=== PATIENT | female | born 1955 | race Caucasian/White ===

== ENCOUNTER 2016-10-14 08:22 | Emergency (ER) | payer BC ==
[2016-10-14 09:14] VITALS: BP 133/86
--- NOTE | 2016-10-14 10:22 | UC ---
Skin Complaint HPI - HPI Summary HPI Summary: THIS MORNING IN THE SHOWER NOTICED A TICK EMBEDDED IN SKIN RIGHT LOW BACK LATERALLY. THINKS IT PROBABLY HAS BEEN ATTACHED SINCE WEDNESDAY (3 DAYS AGO) WHEN SHE WAS OUT IN THE [place]. FEELS WELL OVERALL. - History of Current Complaint Chief Complaint: UCSkin Time Seen by Provider: 10/14/16 10:11 Stated Complaint: TICK BITE Hx Obtained From: Patient Skin Exposure Onset/Duration: Days Ago Timing: Constant Onset Severity: Mild Current Severity: Mild Pain Intensity: 0 Pain Scale Used: 0-10 Numeric Location: Discrete - RIGHT LOW BACK Character: Redness Aggravating: Nothing Alleviating: Nothing Associated Signs & Symptoms: Positive: Negative Related History: Insect Bite/Sting - Allergy/Home Medications Allergies/Adverse Reactions: Allergies Allergy/AdvReac Type Severity Reaction Status Date / Time Penicillins [PCN] Allergy Unknown Verified 03/08/14 15:37 Reaction Details Sulfa Antibiotics Allergy Unknown Verified 03/08/14 15:36 Reaction Details Review of Systems Constitutional: Negative Skin: Rash, Other - TICK EMBEDDED Respiratory: Negative Cardiovascular: Negative Gastrointestinal: Negative All Other Systems Reviewed And Are Negative: Yes PMH/Surg Hx/FS Hx/Imm Hx Endocrine History Of: Reports: Thyroid Disease - HYPO, Hypothyroidism, Dyslipidemia Cancer History Of: Denies: Breast Cancer - Surgical History Surgical History: None - Family History Known Family History: Positive: Hypertension - Social History Alcohol Use: Occasionally Substance Use Type: None Smoking Status (MU): Never Smoked Tobacco Physical Exam Triage Information Reviewed: Yes Appearance: Well-Appearing, No Pain Distress, Well-Nourished Vital Signs: Initial Vital Signs Temp 99.4 F 10/14/16 09:08 Pulse 72 10/14/16 09:08 Resp 16 10/14/16 09:08 BP 133/86 10/14/16 09:08 Pulse Ox 98 10/14/16 09:08 Vital Signs Reviewed: Yes Eyes: Positive: Conjunctiva Clear ENT: Positive: Hearing grossly normal Neck: Positive: Supple Respiratory: Positive: No respiratory distress, No accessory muscle use Cardiovascular: Positive: Pulses Normal Abdomen Description: Positive: Soft Musculoskeletal: Positive: No Edema Neurological: Positive: Alert Psychological: Positive: Age Appropriate Behavior Skin: Positive: Other - MAJORITY OF A TICK EMBEDDED IN SKIN OF RIGHT LOWER BACK. 1CM AREA OF ERYTHEMA SURROUNDING Course/Dx - Course Course Of Treatment: TICK REMOVED IN ENTIRETY USING SPLINTER FORCEPS. PT MEETS CRITERIA FOR LYME PROPHYLAXIS WITH DOXY. - Diagnoses Provider Diagnoses: TICK BITE/TICK REMOVAL Discharge - Discharge Plan Condition: Stable Disposition: HOME Prescriptions: Doxycycline (Monohydrate) [Doxycycline Monohydrate] 200 mg PO ONCE #2 cap Patient Education Materials: Tick Bite (ED) Referrals: Dallas Boyer MD [Primary Care Provider] - If Needed Additional Instructions: GIVEN THE LENGTH OF TIME THE TICK WAS ATTACHED WE HAVE PRESCRIBED THE PROPHYLACTIC DOSE OF DOXYCYCLINE. YOUR CHANCES OF DEVELOPING LYME DISEASE ARE SMALL. BE VIGILANT OF YOUR SYMPTOMS AND DON'T HESITATE TO GET SEEN AGAIN IF YOU DEVELOP UNEXPLAINED FEVER, HEADACHE, JOINT PAIN, BODY ACHES, RASH OR ANY OTHER CONCERNING SYMPTOMS.
== END 2016-10-14 10:39 | disposition home or self-care (01) ==
LOC: UCEAST 08:22
DX: S30.860A Insect bite (nonvenomous) of lower back and pelvis, initial encounter (principal); W57.XXXA Bitten or stung by nonvenomous insect and other nonvenomous arthropods, initial encounter; Y93.9 Activity, unspecified; Y92.9 Unspecified place or not applicable; Z88.0 Allergy status to penicillin; Z88.2 Allergy status to sulfonamides; E03.9 Hypothyroidism, unspecified; E78.5 Hyperlipidemia, unspecified
CPT/HCPCS: 99211; G0463